=== PATIENT | male | born 1995 | race American Indian/Alaskan Native ===

== ENCOUNTER 2019-07-25 10:07 | Observation (INO) | payer OTHER ==
[2019-07-25] MEDS ORDERED: ZIPRASIDONE MESYLATE 20 MG VIAL IM ONE ×2 (10:15→10:18)
[2019-07-25] MEDS ORDERED: WATER FOR INJ Sterile (PF) 10 ML ONE (10:18)
[2019-07-25] MEDS ORDERED: FOSPHENYTOIN 1,000 MG.PE in SODIUM CHLORIDE 0.9% 100 ML IV ONE (10:23)
--- NOTE | 2019-07-25 10:24 | Emergency Department Report ---
HPI - General Time Seen by Provider: 07/25/19 10:11 - HPI HPI: 24-year-old Lilibeth male presents to the emergency department from home with apparently having 2 witnessed seizures. Patient has a seizure disorder history for which she is on Dilantin but allegedly has been out for the past 3 days. Family told EMS that after he has seizures he has about a 2 hour period where he becomes combative. However the patient is awake, alert, oriented and does continue to be agitated and combative. He has made multiple attempts to try and bite ER staff. The patient does not appear to have been at this emergency department previously. ED Review of Systems ROS: Stated complaint: SZ/COMBATIVE Other details as noted in HPI Comment: Unobtainable due to pts medical conditions Constitutional: denies: fever Neurological: headache, other (seizure) Physical Exam - Physical Exam Physical Exam: GENERAL: The patient is well-developed well-nourished. HENT: Normocephalic. Atraumatic. Patient has moist mucous membranes. EYES: Extraocular motions are intact. Pupils equal reactive to light bilaterally. NECK: Supple. Trachea is midline. CHEST/LUNGS: Clear to auscultation. There is no respiratory distress noted. HEART/CARDIOVASCULAR: Regular. There is mild tachycardia. There is no murmur. ABDOMEN: Abdomen is soft, nontender. Patient has normal bowel sounds. There is no abdominal distention. SKIN: Skin is warm and dry. NEURO: The patient is awake but is agitated, noncompliant and questionable postictal. however the patient is able to answer some identification questions appropriately. Withdraws from painful stimuli. Normal speech. Cranial nerves II through XII grossly intact. MUSCULOSKELETAL: Patient has tenderness to palpation of the left shoulder which is hanging low within the shoulder joint concerning for dislocation. Radial pulse +2 over 4 and capillary refill less than 2 seconds bilaterally. - Moderate Sedation Indications: fracture/dislocation redu Time of Last PO Intake: 00:00 (unknown) Preparation: cardiac technologist applied, pulse oximeter, capnometry used, supplemental O2 applied, suction/airway equipment at bedside, IV secured Ketamine: IV Ketamine Dose: 40 IV Propofol Dose (mgs): 30 Complications: none Patient Tolerated Procedure: well - Orthopedic Joint Reduction Joint #1 Consent Obtained: verbal consent, emergent situation Time Out Performed: Yes Side: left Joint Reduction Location: shoulder Analgesia: moderate sedation Shoulder Technique Used (if applicable): traction/counter-traction, external rotation Post-Reduction Neuro Exam: intact Post-Reduction Vascular Exam: intact Post Reduction X-Ray Obtained: Yes Post Reduction X-Ray Results: reduced Splint Applied: Yes Patient Tolerated Procedure: well ED Medical Decision Making - Lab Data Result diagrams: 07/25/19 10:45 07/25/19 10:45 - Radiology Data Radiology results: report reviewed, image reviewed interpreted by me: Initial left shoulder x-ray shows a anterior inferior dislocation. Postreduction x-ray shows appropriate alignment of the humeral head within the glenohumeral joint CT of the head does not show any acute intracranial process including no is chemia, shift, mass, bleeding or skull fracture. - Medical Decision Making This patient presents after having 2 witnessed seizures at home with a history of a seizure disorder and alleged noncompliance with his phenytoin for the past 3 days. The patient did have another witnessed seizure while in the emergency department later on during his ED course. Apparently the patient has some history of being combative during his post ictal state. However the patient is able to answer some orientation questions appropriately but yet still is combative and belligerent, trying to bite members of the ER staff. The patient required some restraints, both chemical and physical, due to his combativeness and concern that he would further injure himself. At some point during one of his original seizures or in his combative state prior to arrival in the emergency department, the patient appears to have dislocated his left shoulder which he apparently has a history of doing recurrently. Patient was loaded with fosphenytoin. Patient was given some Geodon, Ativan, and then Benadryl so that we could start to evaluate and treat him. His labs are mostly unremarkable except for a urine drug screen positive for marijuana. He does have a low and subtherapeutic phenytoin level. The patient had a CT scan of the head without contrast that does not show any bleed, shift, mass, ischemia, or any other acute process. Patient had a left shoulder x-ray that did confirm an anterior and inferior shoulder dislocation. A moderate sedation was done and the shoulder w as appropriately reduced. The patient does not present with any contact information for family, there is no family at bedside, the patient is not in a state of mind to make appropriate medical decisions. Therefore the procedures were done on an emergent basis as I did not want to leave the patient's shoulder out of socket. However the patient was heard saying to "put my shoulder back in place" multiple times during his ED course. The patient has been in the emergency department for close to 4 hours and he has had multiple seizures today, is not back at his baseline mental status, and therefore will be admitted to the hospital for further evaluation and treatment. There may be a psychiat mario component as well. The patient has been accepted for admission by the hospitalist, Dr. Santana. - Differential Diagnosis seizure disorder, conversion disorder, shoulder dislocation Critical Care Time: No Critical care attestation.: If time is entered above; I have spent that time in minutes in the direct care of this critically ill patient, excluding procedure time. ED Disposition Clinical Impression: Recurrent seizures, Combative behavior Dislocation of left shoulder joint Qualifiers: Encounter type: initial encounter Qualified Code(s): S43.005A - Unspecified dislocation of left shoulder joint, initial encounter Altered mental status Qualifiers: Altered mental status type: unspecified Qualified Code(s): R41.82 - Altered mental status, unspecified Disposition: DC-09 OP ADMIT IP TO THIS HOSP Is pt being admited?: Yes Condition: Fair Time of Disposition: 15:03
[2019-07-25] MEDS ORDERED: LORazepam 2 MG/ML VIAL IV ONE ×3 (10:59→12:56)
[2019-07-25 11:02] LABS: Basophils # (Auto) 0.1 K/mm3 (0.0-0.1); Basophils % (Auto) 0.6 % (0.0-1.8); Eosinophils % (Auto) 0.3 % (0.0-4.3); Hematocrit 46.7 % (35.5-45.6); Hemoglobin 14.9 gm/dl (11.8-15.2); Lymphocytes # (Auto) 0.9 K/mm3 (1.2-5.4); Lymphocytes % (Auto) 6.4 % (13.4-35.0); Mean Corpuscular HGB Conc 32 % (32-34); Mean Corpuscular Volume 85 fl (84-94); Monocytes # (Auto) 0.6 K/mm3 (0.0-0.8); Monocytes % (Auto) 4.6 % (0.0-7.3); Platelet Count 230 K/mm3 (140-440); Red Blood Count 5.48 M/mm3 (3.65-5.03); Red Cell Distribution Width 14.9 % (13.2-15.2)
[2019-07-25 11:16] LABS: BUN/Creatinine Ratio 15; Blood Urea Nitrogen 12 mg/dL (9-20); Calcium 8.1 mg/dL (8.4-10.2); Hemolysis Index 50
--- NOTE | 2019-07-25 11:49 | XRay Report ---
Left shoulder-3 views INDICATION: left shoulder pain. COMPARISON: None. IMPRESSION: Anterior inferior humeral head dislocation with Hill-Sachs fracture. Tiny ossific densit y along the inferior glenoid margin worrisome for a bony Bankart lesion. Signer Name: Dwayne El MD Signed: 07/25/2019 11:44 AM Workstation Name: [id number]
[2019-07-25] MEDS ORDERED: diphenhydrAMINE 50 MG/ML VIAL IV ONE (11:50)
[2019-07-25 12:31] LABS: Amphetamine Screen,Urine PRESUMPTIVE NEGATIVE; Benzodiazepines Screen,Urine PRESUMPTIVE NEGATIVE; Cocaine Screen,Urine PRESUMPTIVE NEGATIVE; Methadone Screen,Urine PRESUMPTIVE NEGATIVE; Opiate Screen,Urine PRESUMPTIVE NEGATIVE
[2019-07-25] MEDS ORDERED: PROPOFOL 200 MG/20 ML VIAL IV ONE (12:56)
[2019-07-25] MEDS ORDERED: SODIUM CHLORIDE 0.9% 1000 ML 1,000 ML IV ONE (12:56)
[2019-07-25 13:06] LABS: Cannabinoid Screen,Urine PRESUMPTIVE POSITIVE
[2019-07-25] MEDS ORDERED: KETAMINE 500 MG/5 ML VIAL MDV IV ONE (13:07)
--- NOTE | 2019-07-25 13:37 | XRay Report ---
Single frontal image of the left shoulder INDICATION: post reduction. COMPARISON: Earlier today IMPRESSION: Single frontal image is inadequate for evaluation of any residual dislocation or subluxa tion. A scapular Y view or axillary view is recommended and also the patient must be positioned in ex ternal rotation, not simply internal rotation as seen on this exam. Signer Name: Dwayne El MD Signed: 07/25/2019 1:32 PM Workstation Name: [id number]
--- NOTE | 2019-07-25 13:42 | Cat Scan Report ---
CT HEAD WITHOUT CONTRAST INDICATION / CLINICAL INFORMATION: seizures, headache. TECHNIQUE: All CT scans at this location are performed using CT dose reduction for ALARA by means of automated e xposure control. COMPARISON: None available. FINDINGS: LIMITATIONS: Patient was scanned in an oblique position. HEMORRHAGE: No evidence of intracranial hemorrhage or extra-axial fluid collection. EXTRA-AXIAL SPACES: Cortical sulci, sylvian fissures and basilar cisterns have an unremarkable appear ance. VENTRICULAR SYSTEM: The ventricular system is of normal size and configuration. CEREBRAL PARENCHYMA: No areas of abnormal brain parenchymal attenuation are identified. There is no i ndication of recent infarction. MIDLINE SHIFT OR HERNIATION: There is no mass effect. CEREBELLUM / BRAINSTEM: Brainstem and cerebellum have an unremarkable appearance. INTRACRANIAL VESSELS:No abnormalities are identified on this noncontrast head CT. ORBITS: visualized portions of the orbits have an unremarkable appearance. SOFT TISSUES of HEAD: No significant abnormality. CALVARIUM: Evaluation of bone windows reveals no abnormalities. PARANASAL SINUSES / MASTOID AIR CELLS: Inflammatory mucosal disease is present within mid, anterior a nd posterior ethmoid air cells bilaterally as well as in the dependent portion of the right sphenoid sinus. Mild inflammatory changes are present in the right frontal sinus. Mastoid air cells and middle ear cavities appear clear. IMPRESSION: 1. No intracranial abnormalities. 2. Inflammatory changes in the paranasal sinuses as described above. Signer Name: Paul Guzman MD Signed: 07/25/2019 1:38 PM Workstation Name: [id number]
--- NOTE | 2019-07-25 14:06 | XRay Report ---
Left shoulder-2 scapular Y views INDICATION: shoulder reduction. COMPARISON: Earlier today IMPRESSION: Interval relocation with Hill-Sachs fracture again noted. Signer Name: Dwayne El MD Signed: 07/25/2019 2:01 PM Workstation Name: [id number]
--- NOTE | 2019-07-25 14:53 | History and Physical Report ---
<MAXX HAWTHORNE - Last Filed: 07/25/19 17:48> History of Present Illness Date of examination: 07/25/19 Date of admission: 07/25/2019 Chief complaint: Seizures History of present illness: Pt is a 24-year-old Lilibeth male with a PMH of seizure disorder who presents to the emergency department via EMS after two witnessed seizures this morning. Family reports that he has been out of his anti seizure medications x 3 days and noncompliance with his medication regimen. Patient is reported to have a history of being combative during his post ictal state. He is currently 4 points restrained, moderately sedated/ post tical after dislocating L shoulder in combative state. He is not able to answer orientation questions appropriately on examination. Past History Past Medical History: other (seizure) Past Surgical History: Other (pt not able to answer questions appropriately ) Social history: smoking Family history: other (pt not able to answer questions appropriately ) Medications and Allergies Allergies Allergy/AdvReac Type Severity Reaction Status Date / Time No Known Allergies Allergy Verified 07/25/19 10:33 Active Meds: Active Medications Sodium Chloride (Nacl 0.9% 1000 Ml) 1,000 mls @ 125 mls/hr IV ONCE ONE Stop: 07/25/19 20:55 Last Admin: 07/25/19 13:12 Dose: 125 mls/hr Documented by: Review of Systems ROS unobtainable: due to mental status Exam - Constitutional Vitals: Temp Pulse Resp BP Pulse Ox 98.3 F 79 17 140/72 100 07/25/19 10:20 07/25/19 13:45 07/25/19 13:45 07/25/19 13:45 07/25/19 13:45 General appearance: Present: severe distress - Respiratory Respiratory effort: normal Respiratory: bilateral: CTA - Extremities Extremities: No edema (L arm sling) Peripheral Pulses: within normal limits Results - Labs CBC & Chem 7: 07/25/19 10:45 07/25/19 10:45 Labs: Laboratory Last Values WBC 13.6 K/mm3 (4.5-11.0) H 07/25/19 10:45 RBC 5.48 M/mm3 (3.65-5.03) H 07/25/19 10:45 Hgb 14.9 gm/dl (11.8-15.2) 07/25/19 10:45 Hct 46.7 % (35.5-45.6) H 07/25/19 10:45 MCV 85 fl (84-94) 07/25/19 10:45 MCH 27 pg (28-32) L 07/25/19 10:45 MCHC 32 % (32-34) 07/25/19 10:45 RDW 14.9 % (13.2-15.2) 07/25/19 10:45 Plt Count 230 K/mm3 (140-440) 07/25/19 10:45 Lymph % (Auto) 6.4 % (13.4-35.0) L 07/25/19 10:45 [place] % (Auto) 4.6 % (0.0-7.3) 07/25/19 10:45 Eos % (Auto) 0.3 % (0.0-4.3) 07/25/19 10:45 Baso % (Auto) 0.6 % (0.0-1.8) 07/25/19 10:45 Lymph # 0.9 K/mm3 (1.2-5.4) L 07/25/19 10:45 [place] # 0.6 K/mm3 (0.0-0.8) 07/25/19 10:45 Eos # 0.0 K/mm3 (0.0-0.4) 07/25/19 10:45 Baso # 0.1 K/mm3 (0.0-0.1) 07/25/19 10:45 Seg Neutrophils % 88.1 % (40.0-70.0) H 07/25/19 10:45 Seg Neutrophils # 12.0 K/mm3 (1.8-7.7) H 07/25/19 10:45 Sodium 143 mmol/L (137-145) 07/25/19 10:45 Potassium 3.5 mmol/L (3.6-5.0) L 07/25/19 10:45 Chloride 109.2 mmol/L (98-107) H 07/25/19 10:45 Carbon Dioxide 16 mmol/L (22-30) L 07/25/19 10:45 Anion Gap 21 mmol/L 07/25/19 10:45 BUN 12 mg/dL (9-20) 07/25/19 10:45 Creatinine 0.8 mg/dL (0.8-1.5) 07/25/19 10:45 Estimated GFR > 60 ml/min 07/25/19 10:45 BUN/Creatinine Ratio 15 % 07/25/19 10:45 Glucose 112 mg/dL (75-100) H 07/25/19 10:45 Calcium 8.1 mg/dL (8.4-10.2) L 07/25/19 10:45 Total Creatine Kinase 690 units/L (55-170) H 07/25/19 10:45 TSH 0.755 mlU/mL (0.270-4.200) 07/25/19 13:04 Urine Opiates Screen Presumptive negative 07/25/19 12:00 Urine Methadone Screen Presumptive negative 07/25/19 12:00 Ur Barbiturates Screen Presumptive negative 07/25/19 12:00 Phenytoin 1.2 ug/mL (10.0-20.0) L 07/25/19 10:45 Valproic Acid < 2.8 ug/mL (50-100) L 07/25/19 10:45 Ur Phencyclidine Scrn Presumptive negative 07/25/19 12:00 Ur Amphetamines Screen Presumptive negative 07/25/19 12:00 U Benzodiazepines Scrn Presumptive negative 07/25/19 12:00 Urine Cocaine Screen Presumptive negative 07/25/19 12:00 U Marijuana (THC) Screen Presumptive positive 07/25/19 12:00 Drugs of Abuse Note Disclamer 07/25/19 12:00 Plasma/Serum Alcohol < 0.01 % (0-0.07) 07/25/19 10:45 - Imaging and Cardiology EKG: pending CT Scan - head: report reviewed (No intracranial abnormalities, Inflammatory changes in the right frontal sinus.) Imaging and Cardiology: Left shoulder-2 scapular views POST reduction- Interval relocation with Hill-Sachs fracture again noted. Assessment and Plan Assessment and plan: Seizure Disorder -antiepileptic medication blood levels Phenytoin 1.2, Valproic acid <2.8 -Loading dose fosphenytoin given in ER -Etoh -, THC + -Keppra 1000mq q 12 L Humerus fracture - Hill-Sachs fracture noted on xray -physical therapy, and careful observation may be an effective option -Ortho Conuslt Altered mental status -Therapeutic antiepileptic blood level should correct -CT Head ordered -restraints or sitter may be needed, evaluate -Neuro Consult SIRS -nonspecific to seizures but not related to infection -IVF -monitor labs, UA added Hypokalemia -Potassium on admission 3.5 -Continue to monitor, replete prn -Continuous telemetry monitoring DVT Prophylaxis -SCD Advance Directives: No VTE prophylaxis?: Mechanical <BHARGAV SOUZA S - Last Filed: 07/26/19 14:14> History of Present Illness Date of admission: 07/25/19 15:04 Medications and Allergies Active Meds: Active Medications Acetaminophen (Tylenol) 650 mg PO Q4H PRN PRN Reason: Pain MILD(1-3)/Fever >100.5/SCHILLING Famotidine (Pepcid) 20 mg IV BID DIMA Sodium Chloride (Nacl 0.9% 1000 Ml) 1,000 mls @ 125 mls/hr IV ONCE ONE Stop: 07/25/19 20:55 Last Admin: 07/25/19 13:12 Dose: 125 mls/hr Documented by: Levetiracetam 1,000 mg/ (Dextrose) 110 mls @ 400 mls/hr IV Q12HR DIMA Sodium Chloride (Nacl 0.9% 1000 Ml) 1,000 mls @ 125 mls/hr IV DIRECT DIMA Lorazepam (Ativan) 1 mg IV Q4H PRN PRN Reason: Agitation Morphine Sulfate (Morphine) 2 mg IV Q4H PRN PRN Reason: Pain, Moderate (4-6) Ondansetron HCl (Zofran) 4 mg IV Q8H PRN PRN Reason: Nausea And Vomiting Sodium Chloride (Sodium Chloride Flush Syringe 10 Ml) 10 ml IV BID DIMA Sodium Chloride (Sodium Chloride Flush Syringe 10 Ml) 10 ml IV PRN PRN PRN Reason: LINE FLUSH Exam - Constitutional Vitals: Temp Pulse Resp BP Pulse Ox 98.3 F 62 24 124/57 100 07/25/19 10:20 07/25/19 15:00 07/25/19 16:15 07/25/19 16:15 07/25/19 14:15 General appearance: Present: no acute distress, well-nourished - EENT Eyes: Present: PERRL ENT: hearing intact, clear oral mucosa - Neck Neck: Present: supple, normal ROM - Respiratory Respiratory effort: normal Respiratory: bilateral: CTA - Cardiovascular Heart rate: 80 Rhythm: regular Heart Sounds: Present: S1 & S2. Absent: rub, click - Extremities Extremities: no ischemia, pulses intact, pulses symmetrical, No edema Peripheral Pulses: within normal limits - Abdominal General gastrointestinal: Present: soft, non-tender, non-distended, normal bowel sounds Male genitourinary: Present: normal - Integumentary Integumentary: Present: clear, warm, dry - Musculoskeletal Musculoskeletal: generalized weakness - Psychiatric Psychiatric: agitated, other (decreased responsiveness and agitation, postictal state, combative) - Neurologic Neurologic: CNII-XII intact, moves all extremities - Allied Health Allied health notes reviewed: nursing, case management Results - Labs CBC & Chem 7: 07/26/19 07:04 07/26/19 07:04 Labs: Laboratory Last Values WBC 13.6 K/mm3 (4.5-11.0) H 07/25/19 10:45 RBC 5.48 M/mm3 (3.65-5.03) H 07/25/19 10:45 Hgb 14.9 gm/dl (11.8-15.2) 07/25/19 10:45 Hct 46.7 % (35.5-45.6) H 07/25/19 10:45 MCV 85 fl (84-94) 07/25/19 10:45 MCH 27 pg (28-32) L 07/25/19 10:45 MCHC 32 % (32-34) 07/25/19 10:45 RDW 14.9 % (13.2-15.2) 07/25/19 10:45 Plt Count 230 K/mm3 (140-440) 07/25/19 10:45 Lymph % (Auto) 6.4 % (13.4-35.0) L 07/25/19 10:45 Cobb % (Auto) 4.6 % (0.0-7.3) 07/25/19 10:45 Eos % (Auto) 0.3 % (0.0-4.3) 07/25/19 10:45 Baso % (Auto) 0.6 % (0.0-1.8) 07/25/19 10:45 Lymph # 0.9 K/mm3 (1.2-5.4) L 07/25/19 10:45 [place] # 0.6 K/mm3 (0.0-0.8) 07/25/19 10:45 Eos # 0.0 K/mm3 (0.0-0.4) 07/25/19 10:45 Baso # 0.1 K/mm3 (0.0-0.1) 07/25/19 10:45 Seg Neutrophils % 88.1 % (40.0-70.0) H 07/25/19 10:45 Seg Neutrophils # 12.0 K/mm3 (1.8-7.7) H 07/25/19 10:45 Sodium 143 mmol/L (137-145) 07/25/19 10:45 Potassium 3.5 mmol/L (3.6-5.0) L 07/25/19 10:45 Chloride 109.2 mmol/L (98-107) H 07/25/19 10:45 Carbon Dioxide 16 mmol/L (22-30) L 07/25/19 10:45 Anion Gap 21 mmol/L 07/25/19 10:45 BUN 12 mg/dL (9-20) 07/25/19 10:45 Creatinine 0.8 mg/dL (0.8-1.5) 07/25/19 10:45 Estimated GFR > 60 ml/min 07/25/19 10:45 BUN/Creatinine Ratio 15 % 07/25/19 10:45 Glucose 112 mg/dL (75-100) H 07/25/19 10:45 Calcium 8.1 mg/dL (8.4-10.2) L 07/25/19 10:45 Total Creatine Kinase 690 units/L (55-170) H 07/25/19 10:45 TSH 0.755 mlU/mL (0.270-4.200) 07/25/19 13:04 Urine Opiates Screen Presumptive negative 07/25/19 12:00 Urine Methadone Screen Presumptive negative 07/25/19 12:00 Ur Barbiturates Screen Presumptive negative 07/25/19 12:00 Phenytoin 1.2 ug/mL (10.0-20.0) L 07/25/19 10:45 Valproic Acid < 2.8 ug/mL (50-100) L 07/25/19 10:45 Ur Phencyclidine Scrn Presumptive negative 07/25/19 12:00 Ur Amphetamines Screen Presumptive negative 07/25/19 12:00 U Benzodiazepines Scrn Presumptive negative 07/25/19 12:00 Urine Cocaine Screen Presumptive negative 07/25/19 12:00 U Marijuana (THC) Screen Presumptive positive 07/25/19 12:00 Drugs of Abuse Note Disclamer 07/25/19 12:00 Plasma/Serum Alcohol < 0.01 % (0-0.07) 07/25/19 10:45 Short CBC 07/25/19 Range/Units 10:45 WBC 13.6 H (4.5-11.0) K/mm3 Hgb 14.9 (11.8-15.2) gm/dl Hct 46.7 H (35.5-45.6) % Plt Count 230 (140-440) K/mm3 BMP 07/25/19 10:45 Sodium 143 Potassium 3.5 L Chloride 109.2 H Carbon Dioxide 16 L BUN 12 Creatinine 0.8 Glucose 112 H Calcium 8.1 L Cardiac Enzymes 07/25/19 Range/Units 10:45 Total Creatine Kinase 690 H (55-170) units/L - Imaging and Cardiology CT Scan - head: report reviewed Assessment and Plan Assessment and plan: Acute Encephalopathy--Post ictal state
[2019-07-25] MEDS ORDERED: ONDANSETRON 4 MG/2 ML INJ IV PRN (15:01)
[2019-07-25] MEDS ORDERED: ACETAMINOPHEN 325 MG TAB PO PRN (15:01)
[2019-07-25] MEDS ORDERED: MORPHINE 2 MG/1 ML INJ IV PRN (15:01)
[2019-07-25] MEDS ORDERED: PHENYTOIN 1,000 MG in SODIUM CHLORIDE 0.9% 250ML 250 ML IV ONE (15:09)
[2019-07-25] MEDS ORDERED: SODIUM CHLORIDE 0.9% 1000 ML 1,000 ML IV SCH (17:15)
[2019-07-25] MEDS ORDERED: LORazepam 2 MG/ML VIAL IV PRN (18:44)
[2019-07-25] MEDS: FAMOTIDINE 20 MG/2 ML INJ IV SCH (21:53)
[2019-07-25] MEDS: levETIRAcetam 1,000 MG in DEXTROSE 5% IN WATER 100 ML IV SCH (21:55)
[2019-07-25] MEDS ORDERED: PHENYTOIN 100 MG/2 ML VIAL IV SCH (22:00)
[2019-07-26] MEDS ORDERED: HALOPERIDOL LACTATE 5 MG/1 ML INJ IM ONE (05:32)
[2019-07-26] MEDS ORDERED: diphenhydrAMINE 50 MG/ML VIAL IV ONE (05:33)
[2019-07-26 07:44] LABS: Basophils % (Auto) 0.3 % (0.0-1.8); Hematocrit 47.2 % (35.5-45.6); Hemoglobin 15.5 gm/dl (11.8-15.2); Lymphocytes % (Auto) 7.6 % (13.4-35.0); Mean Corpuscular HGB Conc 33 % (32-34); Mean Corpuscular Volume 84 fl (84-94); Monocytes # (Auto) 1.1 K/mm3 (0.0-0.8); Monocytes % (Auto) 8.4 % (0.0-7.3); Platelet Count 238 K/mm3 (140-440); Red Blood Count 5.64 M/mm3 (3.65-5.03); Red Cell Distribution Width 14.6 % (13.2-15.2)
[2019-07-26 08:07] LABS: BUN/Creatinine Ratio 15; Blood Urea Nitrogen 16 mg/dL (9-20); Calcium 9.7 mg/dL (8.4-10.2); Hemolysis Index 55
[2019-07-26] MEDS: FAMOTIDINE 20 MG/2 ML INJ IV SCH ×2 (09:45→21:28)
[2019-07-26] MEDS: levETIRAcetam 1,000 MG in DEXTROSE 5% IN WATER 100 ML IV SCH (09:45)
--- NOTE | 2019-07-26 10:43 | Progress Note ---
Assessment and Plan Assessment and plan: Seizure Disorder -antiepileptic medication blood levels Phenytoin 1.2, Valproic acid <2.8 -Loading dose fosphenytoin given in ER -Etoh -, THC + -Keppra 1000mg q 12 L Humerus fracture - Hill-Sachs fracture with dislocation noted on xray -physical therapy, and careful observation may be an effective option -Ortho Consulted Acute metabolic encephalopathy -Therapeutic antiepileptic blood level should correc sitter at bedside -Neuro Consultted SIRS -nonspecific to seizures but not related to infection -IVF -monitor labs, UA added Hypokalemia -Potassium on admission 3.5 -Continue to monitor, replete prn -Continuous telemetry monitoring DVT Prophylaxis -SCD History Interval history: Breakthrough seizures Agitation Hospitalist Physical - Physical exam Narrative exam: Gen: Not in acute distress, lying in bed HEENT: Normocephalic, atraumatic Neck: supple, no JVD Heart: S1 and S2 reg, no murmurs, rubs or gallop Lungs: Clear to auscultation bilaterally, Abd: soft, non tender, non distended, normal BS, Ext: No edema, no clubbing, no cyanosis, Neuro: Awake, alert, oriented X 3, Mild agitation, on restraints, No focal neurological signs - Constitutional Vitals: Temp Pulse Resp BP Pulse Ox 98.6 F 61 30 H 99/42 99 07/25/19 20:33 07/25/19 20:33 07/26/19 06:02 07/25/19 20:33 07/25/19 21:59 General appearance: Present: no acute distress, well-nourished Results - Labs CBC & Chem 7: 07/26/19 07:04 07/26/19 07:04 Labs: Laboratory Last Values WBC 12.8 K/mm3 (4.5-11.0) H 07/26/19 07:04 RBC 5.64 M/mm3 (3.65-5.03) H 07/26/19 07:04 Hgb 15.5 gm/dl (11.8-15.2) H 07/26/19 07:04 Hct 47.2 % (35.5-45.6) H 07/26/19 07:04 MCV 84 fl (84-94) 07/26/19 07:04 MCH 28 pg (28-32) 07/26/19 07:04 MCHC 33 % (32-34) 07/26/19 07:04 RDW 14.6 % (13.2-15.2) 07/26/19 07:04 Plt Count 238 K/mm3 (140-440) 07/26/19 07:04 Lymph % (Auto) 7.6 % (13.4-35.0) L 07/26/19 07:04 [place] % (Auto) 8.4 % (0.0-7.3) H 07/26/19 07:04 Eos % (Auto) 0.0 % (0.0-4.3) 07/26/19 07:04 Baso % (Auto) 0.3 % (0.0-1.8) 07/26/19 07:04 Lymph # 1.0 K/mm3 (1.2-5.4) L 07/26/19 07:04 [place] # 1.1 K/mm3 (0.0-0.8) H 07/26/19 07:04 Eos # 0.0 K/mm3 (0.0-0.4) 07/26/19 07:04 Baso # 0.0 K/mm3 (0.0-0.1) 07/26/19 07:04 Seg Neutrophils % 83.7 % (40.0-70.0) H 07/26/19 07:04 Seg Neutrophils # 10.7 K/mm3 (1.8-7.7) H 07/26/19 07:04 Sodium 137 mmol/L (137-145) 07/26/19 07:04 Potassium 4.3 mmol/L (3.6-5.0) D 07/26/19 07:04 Chloride 99.6 mmol/L (98-107) 07/26/19 07:04 Carbon Dioxide 18 mmol/L (22-30) L 07/26/19 07:04 Anion Gap 24 mmol/L 07/26/19 07:04 BUN 16 mg/dL (9-20) 07/26/19 07:04 Creatinine 1.1 mg/dL (0.8-1.5) 07/26/19 07:04 Estimated GFR > 60 ml/min 07/26/19 07:04 BUN/Creatinine Ratio 15 % 07/26/19 07:04 Glucose 107 mg/dL (75-100) H 07/26/19 07:04 Calcium 9.7 mg/dL (8.4-10.2) D 07/26/19 07:04 Total Creatine Kinase 690 units/L (55-170) H 07/25/19 10:45 TSH 0.755 mlU/mL (0.270-4.200) 07/25/19 13:04 Urine Opiates Screen Presumptive negative 07/25/19 12:00 Urine Methadone Screen Presumptive negative 07/25/19 12:00 Ur Barbiturates Screen Presumptive negative 07/25/19 12:00 Phenytoin 1.2 ug/mL (10.0-20.0) L 07/25/19 10:45 Valproic Acid < 2.8 ug/mL (50-100) L 07/25/19 10:45 Ur Phencyclidine Scrn Presumptive negative 07/25/19 12:00 Ur Amphetamines Screen Presumptive negative 07/25/19 12:00 U Benzodiazepines Scrn Presumptive negative 07/25/19 12:00 Urine Cocaine Screen Presumptive negative 07/25/19 12:00 U Marijuana (THC) Screen Presumptive positive 07/25/19 12:00 Drugs of Abuse Note Disclamer 07/25/19 12:00 Plasma/Serum Alcohol < 0.01 % (0-0.07) 07/25/19 10:45 Active Medications - Current Medications Current Medications: Generic Name Dose Route Start Last Admin Trade Name Freq PRN Reason Stop Dose Admin Acetaminophen 650 mg 07/25/19 15:01 Tylenol PO Q4H PRN Pain MILD(1-3)/Fever >100.5/SCHILLING Famotidine 20 mg 07/25/19 22:00 07/26/19 09:45 Pepcid IV 20 mg BID DIMA Administration Levetiracetam 1,000 mg/ 110 mls @ 400 mls/hr 07/25/19 22:00 07/26/19 09:45 Dextrose IV 400 mls/hr Q12HR DIMA Administration Sodium Chloride 1,000 mls @ 125 mls/hr 07/25/19 17:15 07/25/19 21:58 Nacl 0.9% 1000 Ml IV 125 mls/hr DIRECT DIMA Administration Lorazepam 1 mg 07/25/19 18:44 07/26/19 07:36 Ativan IV 1 mg Q4H PRN Administration Agitation Morphine Sulfate 2 mg 07/25/19 15:01 07/26/19 09:46 Morphine IV 2 mg Q4H PRN Administration Pain, Moderate (4-6) Ondansetron HCl 4 mg 07/25/19 15:01 Zofran IV Q8H PRN Nausea And Vomiting Sodium Chloride 10 ml 07/25/19 22:00 07/26/19 09:47 Sodium Chloride Flush Syringe 10 Ml IV 10 ml BID DIMA Administration Sodium Chloride 10 ml 07/25/19 15:01 Sodium Chloride Flush Syringe 10 Ml IV PRN PRN LINE FLUSH
[2019-07-26] MEDS ORDERED: LORazepam 2 MG/ML VIAL IV PRN ×2 (10:53)
[2019-07-26] MEDS ORDERED: D5W/0.9% NACL 1,000 ML IV SCH (13:00)
[2019-07-26] MEDS ORDERED: FOSPHENYTOIN 500 MG PE/10 ML INJ IV ONE (18:19)
--- NOTE | 2019-07-26 18:19 | Consultation ---
History of Present Illness Consult date: 07/26/19 Chief complaint: seizure, medication on compliance History of present illness: This is a 24 YO M with known history of seizures, presented to the ED with 3 seizures, out of meds x 3 days. On my arrival he is sleepy but arousable and will answer questions. Family at bedside says pt does not like Keppra, has been on it in the past and it makes him irritable. Past History Past Medical History: seizures, other (seizure) Past Surgical History: Other (pt not able to answer questions appropriately ) Social history: smoking Family history: other (pt not able to answer questions appropriately ) Medications and Allergies Allergies Allergy/AdvReac Type Severity Reaction Status Date / Time No Known Allergies Allergy Verified 07/25/19 10:33 Active Meds: Active Medications Acetaminophen (Tylenol) 650 mg PO Q4H PRN PRN Reason: Pain MILD(1-3)/Fever >100.5/SCHILLING Famotidine (Pepcid) 20 mg IV BID [facility] Last Admin: 07/26/19 09:45 Dose: 20 mg Documented by: Levetiracetam 1,000 mg/ (Dextrose) 110 mls @ 400 mls/hr IV Q12HR [facility] Last Admin: 07/26/19 09:45 Dose: 400 mls/hr Documented by: Dextrose/Sodium Chloride (D5ns) 1,000 mls @ 75 mls/hr IV DIRECT [facility] Last Admin: 07/26/19 16:12 Dose: 75 mls/hr Documented by: Lorazepam (Ativan) 4 mg IV Q15MIN PRN PRN Reason: CIWA-Ar >25 Lorazepam (Ativan) 2 mg IV Q1HR PRN PRN Reason: CIWA-Ar 8-15 Morphine Sulfate (Morphine) 2 mg IV Q4H PRN PRN Reason: Pain, Moderate (4-6) Last Admin: 07/26/19 09:46 Dose: 2 mg Documented by: Ondansetron HCl (Zofran) 4 mg IV Q8H PRN PRN Reason: Nausea And Vomiting Sodium Chloride (Sodium Chloride Flush Syringe 10 Ml) 10 ml IV BID [facility] Last Admin: 07/26/19 09:47 Dose: 10 ml Documented by: Sodium Chloride (Sodium Chloride Flush Syringe 10 Ml) 10 ml IV PRN PRN PRN Reason: LINE FLUSH Review of Systems Neurological: seizures Physical Examination - Vital Signs Vital Signs: Vital Signs Pulse Resp 95 H 19 07/25/19 10:19 07/25/19 10:19 - Constitutional General appearance: comfortable - EENT EENT: Present: PERRL, mucous membranes moist - Respiratory Respiratory: Present: chest non-tender, lungs clear - Cardiovascular Cardiovascular: Present: regular rate Extremities: Present: no peripheral edema bilatateraly, other (left shoulder in sling) - Gastrointestinal Gastrointestinal: Present: normoactive bowel sounds - Integumentary Integumentary: Present: normal - Neurologic Cranial nerve examination: PERRL, EOMI, V1/V2/V3 grossly intact, face symmetric, tongue midline Speech examination: intact Motor examination - right side: 5/5: biceps, triceps, wrist flexion, wrist ext ension, strategic alliances manager, hip flexors, knee extensors, dorsiflexion, toe extension (EHL), plantarflexion Motor examination - left side: 5/5: biceps, triceps, wrist flexion, wrist extension, strategic alliances manager, hip flexors, knee extensors, dorsiflexion, toe extension (EHL), plantarflexion Detailed sensory examination: intact - Psychiatric Psychiatric: Present: mood/affect appropriate Results - Laboratory Findings CBC and BMP: 07/26/19 07:04 07/26/19 07:04 Abnormal Lab Findings: Abnormal Labs 07/25/19 07/25/19 07/25/19 10:45 10:45 10:45 WBC 13.6 H RBC 5.48 H Hgb Hct 46.7 H MCH 27 L Lymph % (Auto) 6.4 L Camp % (Auto) Lymph # 0.9 L Camp # Seg Neutrophils % 88.1 H Seg Neutrophils # 12.0 H Potassium 3.5 L Chloride 109.2 H Carbon Dioxide 16 L Glucose 112 H Calcium 8.1 L Total Creatine Kinase 690 H Phenytoin 1.2 L Valproic Acid < 2.8 L 07/26/19 07/26/19 07:04 07:04 WBC 12.8 H RBC 5.64 H Hgb 15.5 H Hct 47.2 H MCH Lymph % (Auto) 7.6 L Camp % (Auto) 8.4 H Lymph # 1.0 L Camp # 1.1 H Seg Neutrophils % 83.7 H Seg Neutrophils # 10.7 H Potassium Chloride Carbon Dioxide 18 L Glucose 107 H Calcium Total Creatine Kinase Phenytoin Valproic Acid Assessment and Plan This is a 24 YO M with breakthru seizure secondary to nonc ompliance. REcommend: Will stop Keppra, he has not tolerated it in the past. Restart Dilantin. Continue care for all medical issues as you are doing Follow up with PCP/Neurologist outpatient
[2019-07-26] MEDS ORDERED: FOSPHENYTOIN 1,000 MG.PE in SODIUM CHLORIDE 0.9% 100 ML IV ONE (18:45)
[2019-07-27 06:39] VITALS: BP 127/57
[2019-07-27] MEDS: PHENYTOIN 100 MG CAPSULE.ER PO SCH ×2 (09:45→15:08)
[2019-07-27] MEDS ORDERED: FAMOTIDINE 20 MG TAB PO SCH (10:00)
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
--- NOTE | 2019-07-27 16:11 | Discharge Summary ---
Providers - Providers Date of Admission: 07/25/19 15:04 Date of discharge: 07/27/19 Attending physician: LUPE PORTER 07/25/19 16:27 Consult to Physician [CONS] Routine Comment: Consulting Provider: SOPHIE ISIDRO Physician Instructions: Reason For Exam: sz 07/25/19 16:29 Consult to Physician [CONS] Routine Comment: Consulting Provider: RADHA LEE Physician Instructions: Reason For Exam: fx Primary care physician: CLINICAL LABORATORY DIRECTOR Hospitalization Reason for admission: seizure disorder Condition: Fair Pertinent studies: CT scan of the head that was unremarkable X-ray of the left shoulder shows evidence of dislocation Admission EKG that shows evidence of atrial fibrillation EKG shows normal sinus rate Procedures: None Hospital course: Pt is a 24-year-old Lilibeth male with a PMH of seizure disorder who presents to the emergency department via EMS after two witnessed seizures this morning. Family reports that he has been out of his anti seizure medications x 3 days and noncompliance with his medication regimen. Patient is reported to have a history of being combative during his post ictal state. He is currently 4 points restrained, moderately sedated/ post tical after dislocating L shoulder in combative state. He is not able to answer orientation questions appropriately on examination. Patient commenced in iv Keppra. Family members indicated that patient does not respond well to Keppra. Makes him aggressive. Neuro consult was obtained. Advised to discontinue Keppra commence patient on Dilantin. Patient has had no more seizures since admission. Mental status and reverted to normal. He's never been discharged today on Dilantin. Advised to follow-up with primary care physician in 3 days and follow-up with a neurologist in 7 days. Condition on discharge was satisfactory. While on admission orthopedic surgical consult was obtained because of the dislocated his shoulder. Orthopedic consult noted that patient may not benefit from surgical intervention at this point. Dislocation had reduced spontaneously. Compliance with his medication was advised. Disposition: DC-01 TO HOME OR SELFCARE Time spent for discharge: 36 min - Discharge Diagnoses (1) Altered mental status Status: Acute Qualifiers: Altered mental status type: unspecified Qualified Code(s): R41.82 - Altered mental status, unspecified (2) Combative behavior Status: Acute (3) Dislocation of left shoulder joint Status: Acute Qualifiers: Encounter type: initial encounter Qualified Code(s): S43.005A - Unspecified dislocation of left shoulder joint, initial encounter (4) Recurrent seizures Status: Acute Core Measure Documentation - Palliative Care Palliative Care/ Comfort Measures: Not Applicable - Core Measures Any of the following diagnoses?: none Exam - Physical Exam Narrative exam: Constitutional: Well-nourished well-developed. In no distress Head: Normocephalic atraumatic Eyes: Pupils are equal round and reactive to light Nose: No enlarged turbinates, no septal deviation. Mouth: Moist mucous membranes. Neck: Supple no thyromegaly. No bruit. No JVD Heart: Regular rate and rhythm, S1-S2 normal. No rubs murmurs or gallop Lungs: Clear to auscultation bilaterally. no rales or rhonchi Abdomen: Soft, nontender. Bowel sound are present. Extremities: No edema, no cyanosis, no clubbing. Neuro: Alert oriented Oriented x3. No focal sensory or motor deficit. Skin: No rashes or hyperpigmented spots Musculoskeletal system: No joint pain or swelling Hematological: No petechia or subcutanous hemorrhages. Immunological: No multiple septic spots on the skin Lymphatic: No generalized lymphadenopathy Psychiatry: Euthymic. Calm. - Constitutional Vitals: Temp Pulse Resp BP Pulse Ox 98.1 F 85 14 127/57 97 07/27/19 05:45 07/27/19 05:45 07/27/19 05:45 07/27/19 05:45 07/27/19 05:45 Plan Activity: fall precautions Weight Bearing Status: Weight Bear as Tolerated Diet: regular Follow up with: PRIMARY CARE, [Primary Care Provider] - 3-5 Days Prescriptions: Phenytoin [Dilantin] 100 mg PO Q8HR #90 capsule.er
== END 2019-07-27 17:30 | disposition home or self-care (01) ==
LOC: ED 10:07 → 3A 15:04
PROVIDERS: ADMIT Internal Medicine; ATTEND Family Medicine
DX: G40.909 Epilepsy, unspecified, not intractable, without status epilepticus (principal); R65.10 Systemic inflammatory response syndrome (SIRS) of non-infectious origin without acute organ dysfunction; R41.82 Altered mental status, unspecified; E87.6 Hypokalemia; G93.41 Metabolic encephalopathy; S42.202A Unspecified fracture of upper end of left humerus, initial encounter for closed fracture; R46.89 Other symptoms and signs involving appearance and behavior; X58.XXXA Exposure to other specified factors, initial encounter; Y93.89 Activity, other specified; Y99.9 Unspecified external cause status
CPT/HCPCS: 36415; 70450; 73020; 73030; 80048; 80164; 80185; 80307; 82550; 84443; 85025; 93005; 93010; 96361; 96365; 96366; 96367; 96372; 96375; 96376; 99284; G0378; J1165; J1200; J1630; J1953; J2060; J2270; J2704; J3486; J7030; J7042; J7050; Q2009; 80320; G0480

== ENCOUNTER 2019-08-12 21:35 | Emergency (ER) | payer SELFPAY ==
[2019-08-12] MEDS ORDERED: LORazepam 2 MG/ML VIAL ONE (21:43)
[2019-08-12] MEDS ORDERED: LORazepam 2 MG/ML VIAL IM ONE ×2 (21:56→22:19)
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
[2019-08-12] MEDS ORDERED: HALOPERIDOL LACTATE 5 MG/1 ML INJ IM ONE (22:19)
[2019-08-12] MEDS ORDERED: diphenhydrAMINE 50 MG/ML VIAL IV ONE (22:21)
[2019-08-12 23:04] LABS: Amphetamine Screen,Urine PRESUMPTIVE NEGATIVE; Cocaine Screen,Urine PRESUMPTIVE NEGATIVE; Methadone Screen,Urine PRESUMPTIVE NEGATIVE; Opiate Screen,Urine PRESUMPTIVE NEGATIVE
[2019-08-12 23:16] LABS: Benzodiazepines Screen,Urine PRESUMPTIVE POSITIVE; Cannabinoid Screen,Urine PRESUMPTIVE POSITIVE
[2019-08-12] MEDS: FOSPHENYTOIN 1,000 MG.PE in SODIUM CHLORIDE 0.9% 100 ML IV ONE (23:34)
[2019-08-13] MEDS: FOSPHENYTOIN 1,000 MG.PE in SODIUM CHLORIDE 0.9% 100 ML IV ONE (01:26)
[2019-08-13 01:40] LABS: Hematocrit 42.8 % (35.5-45.6); Mean Corpuscular HGB Conc 33 % (32-34); Mean Corpuscular Volume 85 fl (84-94); Platelet Count 232 K/mm3 (140-440); Red Blood Count 5.07 M/mm3 (3.65-5.03); Red Cell Distribution Width 14.7 % (13.2-15.2)
[2019-08-13 02:01] LABS: BUN/Creatinine Ratio 8; Blood Urea Nitrogen 8 mg/dL (9-20); Calcium 9.9 mg/dL (8.4-10.2); Hemolysis Index 6
[2019-08-13 03:41] VITALS: BP 115/59
== END 2019-08-13 09:57 | disposition home or self-care (01) ==
LOC: ED 21:35
DX: R45.6 Violent behavior (principal); G40.909 Epilepsy, unspecified, not intractable, without status epilepticus; R41.82 Altered mental status, unspecified; Z79.899 Other long term (current) drug therapy
CPT/HCPCS: 36415; 80048; 80185; 80307; 85027; 96365; 96372; 96375; 99284; J1200; J1630; J2060; Q2009; 80320; 82962; G0480

== ENCOUNTER 2019-09-07 10:13 | Emergency (ER) | payer SELFPAY ==
[2019-09-07] MEDS ORDERED: levETIRAcetam 1000 MG/NS 0.75% 1,000 MG/100 ML BAG IV ONE (11:21)
[2019-09-07] MEDS ORDERED: LORazepam 2 MG/ML VIAL IV ONE ×2 (11:22→13:21)
--- NOTE | 2019-09-07 12:26 | XRay Report ---
LEFT SHOULDER 3 VIEWS INDICATION / CLINICAL INFORMATION: pain, deformation COMPARISON: None available. FINDINGS: BONES / JOINT(S): Subcoracoid dislocation of the humeral head with Hill-Sachs deformity. No acute yobani earing injury. No significant arthritis. SOFT TISSUES: No significant abnormality. ADDITIONAL FINDINGS: None. Signer Name: Marin Taylor MD Signed: 09/07/2019 12:21 PM Workstation Name: [employer]
[2019-09-07] MEDS ORDERED: BUPIVACAINE/PF (0.5%) 5 MG/1 ML 30 ML VIAL INFILTRATI ONE (13:21)
--- NOTE | 2019-09-07 13:25 | Emergency Department Report ---
ED General Adult HPI - General Chief complaint: Seizure Stated complaint: SEIZURE Time Seen by Provider: 09/07/19 11:17 Source: patient, EMS Mode of arrival: Stretcher Limitations: Other - History of Present Illness Initial comments: Patient presents to the emergency department with a chief complaint of seizure activity. Patient takes Dilantin daily for his seizures. Patient also complains of left shoulder pain. Patient has a history of shoulder dislocations. -: Sudden Location: upper extremity Radiation: non-radiation Severity scale (0 -10): 6 Quality: aching Consistency: constant Improves with: rest Associated Symptoms: denies other symptoms Treatments Prior to Arrival: none - Related Data Previous Rx's Medication Instructions Recorded Last Taken Type Phenytoin [Dilantin] 100 mg PO Q8HR #90 capsule.er 08/13/19 Unknown Rx Allergies Allergy/AdvReac Type Severity Reaction Status Date / Time No Known Allergies Allergy Verified 09/07/19 11:03 ED Review of Systems ROS: Stated complaint: SEIZURE Other details as noted in HPI Constitutional: denies: chills, fever Eyes: denies: eye pain, eye discharge, vision change ENT: denies: ear pain, throat pain Respiratory: denies: cough, shortness of breath, wheezing Cardiovascular: denies: chest pain, palpitations Endocrine: no symptoms reported Gastrointestinal: denies: abdominal pain, nausea, diarrhea Genitourinary: denies: urgency, dysuria Musculoskeletal: denies: back pain, joint swelling, arthralgia Skin: denies: rash, lesions Neurological: denies: headache, weakness, paresthesias Psychiatric: denies: anxiety, depression Hematological/Lymphatic: denies: easy bleeding, easy bruising ED Past Medical Hx - Past Medical History Previous Medical History?: Yes Hx Congestive Heart Failure: No Hx Diabetes: No Hx Seizures: Yes Hx Asthma: No Hx COPD: No Hx HIV: No - Social History Smoking Status: Unknown if ever smoked - Medications Home Medications: Home Medications Medication Instructions Recorded Confirmed Last Taken Type Phenytoin [Dilantin] 100 mg PO Q8HR #90 capsule.er 08/13/19 Unknown Rx ED Physical Exam - General Limitations: Other General appearance: alert, in no apparent distress, other (patient is post ictal and very combative) - Head Head exam: Present: atraumatic, normocephalic - Eye Eye exam: Present: normal appearance, PERRL, EOMI - ENT ENT exam: Present: mucous membranes moist - Neck Neck exam: Present: normal inspection - Respiratory Respiratory exam: Present: normal lung sounds bilaterally. Absent: respiratory distress - Cardiovascular Cardiovascular Exam: Present: regular rate, normal rhythm. Absent: systolic murmur, diastolic murmur, rubs, gallop - GI/Abdominal GI/Abdominal exam: Present: soft, normal bowel sounds. Absent: distended, tenderness - Rectal Rectal exam: Present: deferred - Extremities Exam Extremities exam: Present: other (of his dislocation of the left shoulder) - Back Exam Back exam: Present: normal inspection - Neurological Exam Neurological exam: Present: alert, oriented X3 - Psychiatric Psychiatric exam: Present: normal affect, normal mood - Skin Skin exam: Present: warm, dry, intact, normal color. Absent: rash ED Course Vital Signs 09/07/19 09/07/19 09/07/19 10:20 11:18 15:27 Temperature 98.7 F Pulse Rate 88 Pulse Rate [ 55 L Post-Procedure] Pulse Rate [Pre 61 -Procedure] Respiratory 16 18 Rate Respiratory 19 Rate [Post- Procedure] Respiratory 19 Rate [Pre- Procedure] Blood Pressure 136/64 Blood Pressure 144/67 [Post-Procedure ] Blood Pressure 143/59 [Pre-Procedure] O2 Sat by Pulse 100 Oximetry O2 Sat by Pulse 100 Oximetry [Post -Procedure] O2 Sat by Pulse 100 Oximetry [Pre- Procedure] - Orthopedic Joint Reduction Joint #1 Consent Obtained: written consent Time Out Performed: Yes Side: left Joint Reduction Location: shoulder Analgesia: moderate sedation Local Anesthetic Used: Lidocaine 1% Shoulder Technique Used (if applicable): Sandra Post-Reduction Neuro Exam: intact Post-Reduction Vascular Exam: intact Post Reduction X-Ray Obtained: Yes Post Reduction X-Ray Results: reduced Splint Applied: Yes Patient Tolerated Procedure: well Additional Comments: Initially the reduction was attempted with local injection of Marcaine without success ED Medical Decision Making - Lab Data Lab Results 09/07/19 Range/Units 13:02 Phenytoin 3.3 L (10.0-20.0) ug/mL - Radiology Data Radiology results: report reviewed - Medical Decision Making Patient given IV Keppra and IV Ativan Critical care attestation.: If time is entered above; I have spent that time in minutes in the direct care of this critically ill patient, excluding procedure time. ED Disposition Clinical Impression: Seizure, Shoulder dislocation, recurrent Disposition: DC-01 TO HOME OR SELFCARE Is pt being admited?: No Does the pt Need Aspirin: No Condition: Stable Instructions: Shoulder Dislocation (ED), Recurrent Seizures Adult (ED), Moderate Sedation (ED) Additional Instructions: return if worse Please take your seizure medications as prescribed Referrals: CHRISTIAN GEORGE MD [Primary Care Provider] - 3-5 Days Time of Disposition: 16:00
[2019-09-07] MEDS ORDERED: SODIUM CHLORIDE 0.9% 1000 ML 1,000 ML IV ONE (14:17)
[2019-09-07] MEDS ORDERED: ONDANSETRON 4 MG/2 ML INJ IV ONE (14:17)
[2019-09-07] MEDS ORDERED: PROPOFOL 200 MG/20 ML VIAL IV ONE (14:17)
--- NOTE | 2019-09-07 15:54 | XRay Report ---
LEFT SHOULDER 09/07/2019 3:31 PM HISTORY: Post reduction. COMPARISON: Same day at 11:13 AM TECHNIQUE: 1 view of the left shoulder was obtained. FINDINGS Bones: No fracture or dislocation. The shoulder dislocation has been reduced. Joint spaces: Maintained. Soft tissues: No significant abnormality. Additional findings: None. IMPRESSION: 1. Reduction of shoulder dislocation. Signer Name: Alonso Weathers MD Signed: 09/07/2019 3:50 PM Workstation Name: [id number]
[2019-09-07 17:12] VITALS: BP 121/68
== END 2019-09-07 17:17 | disposition home or self-care (01) ==
LOC: ED 10:13
DX: S43.005A Unspecified dislocation of left shoulder joint, initial encounter (principal); R56.9 Unspecified convulsions; Z79.899 Other long term (current) drug therapy; X58.XXXA Exposure to other specified factors, initial encounter; Y93.89 Activity, other specified; Y92.89 Other specified places as the place of occurrence of the external cause; Y99.8 Other external cause status
CPT/HCPCS: 23650; 36415; 73020; 73030; 80185; 96365; 96375; 96376; 99285; J1953; J2060; J2405; J2704; J7030

== ENCOUNTER 2019-10-05 09:43 | Emergency (ER) | payer SELFPAY ==
[2019-10-05] MEDS ORDERED: KETOROLAC 30 MG/1 ML INJ IV ONE (10:29)
[2019-10-05 10:46] VITALS: BP 138/80
--- NOTE | 2019-10-05 10:46 | Emergency Department Report ---
{null, ED Seizure HPI - General Chief Complaint: Seizure Stated Complaint: SEIZURE Time Seen by Provider: 10/05/19 10:02 Source: EMS Mode of arrival: Stretcher Limitations: No Limitations - History of Present Illness Initial Comments: 24-year-old male with a past medical history of seizure disorder currently on Dilantin. Patient had 2 seizures witnessed by bystanders prior to arrival. Patient was postictal in presence of EMS. Patient states he is compliant with his Dilantin 100 mg 3 times daily dosing with last dose this morning. Patient complains of right sided moderate headache which is typical of his post seizure headache. Patient is tearful during examination and appears to be upset. No reports of tongue laceration, urinary incontinence, focal weakness, or focal numbness. - Related Data Previous Rx's Medication Instructions Recorded Last Taken Type Ibuprofen [Motrin] 600 mg PO Q8H PRN #20 tablet 10/05/19 Unknown Rx Phenytoin [Dilantin] 100 mg PO Q8HR #90 capsule.er 10/05/19 Unknown Rx Allergies Allergy/AdvReac Type Severity Reaction Status Date / Time No Known Allergies Allergy Verified 09/07/19 11:03 ED Review of Systems ROS: Stated complaint: SEIZURE Other details as noted in HPI Comment: All other systems reviewed and negative ED Past Medical Hx - Past Medical History Previous Medical History?: Yes Hx Congestive Heart Failure: No Hx Diabetes: No Hx Seizures: Yes Hx Asthma: No Hx COPD: No Hx HIV: No - Surgical History Past Surgical History?: No - Social History Smoking Status: Light Tobacco Smoker Substance Use Type: None - Medications Home Medications: Home Medications Medication Instructions Recorded Confirmed Last Taken Type Ibuprofen [Motrin] 600 mg PO Q8H PRN #20 tablet 10/05/19 Unknown Rx Phenytoin [Dilantin] 100 mg PO Q8HR #90 capsule.er 10/05/19 Unknown Rx ED Physical Exam - General Limitations: No Limitations - Other Other exam information: General: No acute distress Head: Atraumatic Eyes: normal appearance ENT: Moist mucous membranes Neck: Normal appearance, no midline tenderness Chest: Clear to auscultation bilaterally CV: Regular rate and rhythm Abdomen: Soft, normal bowel sounds, nontender, nondistended, no rebound or guarding Back: Normal inspection Extremity: Normal inspection, full range of motion Neuro: Alert O x 3, no facial asymmetry, speech clear, no gross motor sensory deficit Psych: Tearful Skin: No rash ED Course Vital Signs 10/05/19 10/05/19 10/05/19 10:15 10:30 11:30 Pulse Rate 84 Respiratory 16 16 16 Rate Blood Pressure 138/80 [Left] O2 Sat by Pulse 98 98 Oximetry 10/05/19 10/05/19 12:00 13:33 Pulse Rate Respiratory 16 16 Rate Blood Pressure [Left] O2 Sat by Pulse Oximetry - Reevaluation(s) Reevaluation #1: 10/05/19 10:45 As informed by RN that patient walked out of the department. He did not have IV placed. 10/05/19 10:57 pt is back, he apparently went outside to smoke a cigarette ED Medical Decision Making - Lab Data Result diagrams: 10/05/19 10:15 10/05/19 10:15 Lab Results 10/05/19 10/05/19 10/05/19 Range/Units 10:15 10:15 10:15 WBC 4.8 (4.5-11.0) K/mm3 RBC 5.38 H (3.65-5.03) M/mm3 Hgb 15.1 (11.8-15.2) gm/dl Hct 45.4 (35.5-45.6) % MCV 84 (84-94) fl MCH 28 (28-32) pg MCHC 33 (32-34) % RDW 14.8 (13.2-15.2) % Plt Count 250 (140-440) K/mm3 Lymph % (Auto) Resistor [place]inder [place] % (Auto) Resistor Winder Eos % (Auto) Resistor Winder Baso % (Auto) Resistor Winder Lymph # Resistor Winder [place] # Resistor Winder Eos # Resistor Winder Baso # Resistor Winder Seg Neutrophils % Resistor Winder Seg Neutrophils # Resistor Winder Sodium 139 (137-145) mmol/L Potassium 5.1 H (3.6-5.0) mmol/L Chloride 106.1 (98-107) mmol/L Carbon Dioxide 19 L (22-30) mmol/L Anion Gap 19 mmol/L BUN 11 (9-20) mg/dL Creatinine 0.8 (0.8-1.5) mg/dL Estimated GFR > 60 ml/min BUN/Creatinine Ratio 14 % Glucose 85 (75-100) mg/dL Calcium 9.9 (8.4-10.2) mg/dL Magnesium 2.10 (1.7-2.3) mg/dL Phenytoin 2.6 L (10.0-20.0) ug/mL - Medical Decision Making Patient presents to the hospital complaining of typical post seizure headache. He is alert and at baseline mental status. Provided Toradol and morphine for pain. Dilantin subtherapeutic and patient received fosphenytoin IV 1 g load. Patient be discharged with med refill and pain medication - Differential Diagnosis Medication noncompliance, electrolyte abnormality, breakthrough seizure Critical Care Time: No Critical care attestation.: If time is entered above; I have spent that time in minutes in the direct care of this critically ill patient, excluding procedure time. ED Disposition Clinical Impression: Recurrent seizures, Noncompliance with medication regimen Disposition: TO HOME OR SELFCARE Is pt being admited?: No Does the pt Need Aspirin: No Condition: Stable Instructions: Epilepsy (ED) Additional Instructions: Take the medication as prescribed. Follow-up with your doctor or doctor/clinic provided. Return if symptoms worsen as indicated by your discharge instructions. Prescriptions: Phenytoin [Dilantin] 100 mg PO Q8HR #90 capsule.er Ibuprofen [Motrin] 600 mg PO Q8H PRN #20 tablet PRN Reason: Pain Referrals: [facility] MD BANG [Primary Care Provider] - 3-5 Days ANA CANTU MD [Staff Physician] - 3-5 Days (Neurology) Time of Disposition: 13:41 }
[2019-10-05 11:03] LABS: Hematocrit 45.4 % (35.5-45.6); Hemoglobin 15.1 gm/dl (11.8-15.2); Mean Corpuscular HGB Conc 33 % (32-34); Mean Corpuscular Volume 84 fl (84-94); Platelet Count 250 K/mm3 (140-440); Red Blood Count 5.38 M/mm3 (3.65-5.03); Red Cell Distribution Width 14.8 % (13.2-15.2)
[2019-10-05 11:08] LABS: BUN/Creatinine Ratio 14; Blood Urea Nitrogen 11 mg/dL (9-20); Calcium 9.9 mg/dL (8.4-10.2); Hemolysis Index 66
[2019-10-05] MEDS ORDERED: MORPHINE 4 MG/1 ML INJ IV ONE (12:43)
[2019-10-05] MEDS ORDERED: ONDANSETRON 4 MG/2 ML INJ IV ONE (12:43)
[2019-10-05] MEDS ORDERED: FOSPHENYTOIN 1,000 MG.PE in SODIUM CHLORIDE 0.9% 100 ML IV ONE (12:48)
== END 2019-10-05 14:33 | disposition home or self-care (01) ==
LOC: ED 09:43
DX: G40.909 Epilepsy, unspecified, not intractable, without status epilepticus (principal); F17.200 Nicotine dependence, unspecified, uncomplicated; Z91.14 Patient's other noncompliance with medication regimen; Z79.1 Long term (current) use of non-steroidal anti-inflammatories (NSAID); Z79.899 Other long term (current) drug therapy
CPT/HCPCS: 36415; 80048; 80185; 83735; 85025; 96365; 96375; 99284; J1885; J2270; J2405; Q2009

== ENCOUNTER 2020-02-06 13:34 | Emergency (ER) | payer SELFPAY ==
--- NOTE | 2020-02-06 13:55 | Emergency Department Report ---
ED Seizure HPI - General Chief Complaint: Seizure Stated Complaint: SEIZURE Time Seen by Provider: 02/06/20 13:53 Source: EMS Mode of arrival: Stretcher Limitations: Other - History of Present Illness Initial Comments: This is a 24-year-old man with frequent visits at this facility for seizure and noncompliance. He is capable of talking to this provider on his arrival although he is perhaps a bit postictal from a grand mal seizure prior to arrival. He states that he is taking his Dilantin. Based on previous history, this is unlikely. He is not providing any further information. He is not answering in the affirmative to any questions about injury. He really has no complaint. He is inclined to lay on the gurney with the covers over his head. He was once admitted as below however he usually comes to the emergency department with seizures and noncompliance and is discharged: Hospitalization Reason for admission: seizure disorder Condition: Fair Pertinent studies: CT scan of the head that was unremarkable X-ray of the left shoulder shows evidence of dislocation Admission EKG that shows evidence of atrial fibrillation EKG shows normal sinus rate Procedures: None Hospital course: Pt is a 24-year-old Lilibeth male with a PMH of seizure disorder who presents to the emergency department via EMS after two witnessed seizures this morning. Family reports that he has been out of his anti seizure medications x 3 days and noncompliance with his medication regimen. Patient is reported to have a history of being combative during his post ictal state. He is currently 4 points restrained, moderately sedated/ post tical after dislocating L shoulder in combative state. He is not able to answer orientation questions appropriately on examination. Patient commenced in iv Keppra. Family members indicated that patient does not respond well to Keppra. Makes him aggressive. Neuro consult was obtained. Advised to discontinue Keppra commence patient on Dilantin. Patient has had no more seizures since admission. Mental status and reverted to normal. He's never been discharged today on Dilantin. Advised to follow-up with primary care physician in 3 days and follow-up with a neurologist in 7 days. Condition on discharge was satisfactory. While on admission orthopedic surgical consult was obtained because of the dislocated his shoulder. Orthopedic consult noted that patient may not benefit from surgical intervention at this point. Dislocation had reduced spontaneously. Compliance with his medication was advised. Disposition: DC-01 TO HOME OR SELFCARE Time spent for discharge: 36 min - Discharge Diagnoses (1) Altered mental status Status: Acute Qualifiers: Altered mental status type: unspecified Qualified Code(s): R41.82 - Altered mental status, unspecified (2) Combative behavior Status: Acute (3) Dislocation of left shoulder joint Status: Acute Qualifiers: Encounter type: initial encounter Qualified Code(s): S43.005A - Unspecified dislocation of left shoulder joint, initial encounter (4) Recurrent seizures - Related Data Previous Rx's Medication Instructions Recorded Last Taken Type Ibuprofen [Motrin] 600 mg PO Q8H PRN #20 tablet 10/05/19 Unknown Rx Phenytoin [Dilantin] 100 mg PO Q8HR #90 capsule.er 10/05/19 Unknown Rx Phenytoin [Dilantin] 300 mg PO DAILY #90 capsule 02/06/20 Unknown Rx Allergies Allergy/AdvReac Type Severity Reaction Status Date / Time No Known Allergies Allergy Verified 02/06/20 13:40 ED Review of Systems ROS: Stated complaint: SEIZURE Other details as noted in HPI ED Past Medical Hx - Past Medical History Previous Medical History?: Yes Hx Congestive Heart Failure: No Hx Diabetes: No Hx Seizures: Yes Hx Asthma: No Hx COPD: No Hx HIV: No - Social History Smoking Status: Light Tobacco Smoker Substance Use Type: None - Medications Home Medications: Home Medications Medication Instructions Recorded Confirmed Last Taken Type Ibuprofen [Motrin] 600 mg PO Q8H PRN #20 tablet 10/05/19 Unknown Rx Phenytoin [Dilantin] 100 mg PO Q8HR #90 capsule.er 10/05/19 Unknown Rx Phenytoin [Dilantin] 300 mg PO DAILY #90 capsule 02/06/20 Unknown Rx ED Physical Exam - General Limitations: Other General appearance: alert, in no apparent distress - Head Head exam: Present: atraumatic, normocephalic - Eye Eye exam: Present: normal appearance. Absent: scleral icterus (Poor cooperation) - ENT ENT exam: Present: mucous membranes moist - Neck Neck exam: Present: normal inspection. Absent: meningismus - Respiratory Respiratory exam: Present: normal lung sounds bilaterally. Absent: respiratory distress - Cardiovascular Cardiovascular Exam: Present: regular rate, normal rhythm. Absent: systolic murmur, diastolic murmur, rubs, gallop - GI/Abdominal GI/Abdominal exam: Present: soft, normal bowel sounds. Absent: distended, tenderness - Rectal Rectal exam: Present: deferred - Extremities Exam Extremities exam: Present: normal inspection, other (No deformity. No evidence of dislocation). Absent: calf tenderness - Back Exam Back exam: Present: normal inspection - Neurological Exam Neurological exam: Present: alert, oriented X3, CN II-XII intact (As testable). Absent: motor sensory deficit - Psychiatric Psychiatric exam: Present: normal mood, flat affect - Skin Skin exam: Present: warm, dry, intact, normal color. Absent: rash ED Course Vital Signs 02/06/20 02/06/20 02/06/20 13:40 15:51 16:13 Temperature 97.7 F 97.7 F Pulse Rate 48 L 48 L Respiratory 14 18 19 Rate Blood Pressure 112/64 Blood Pressure 112/64 [Left] O2 Sat by Pulse 99 99 Oximetry - Reevaluation(s) Reevaluation #1: Patient remained poorly cooperative. He finally stated he was ready to leave. He admitted to poor compliance. He will be given p.o. Dilantin prior to discharge. Compliance is encouraged. Driving is prohibited. Follow-up is per the [facility]. Hopefully the patient will be inclined to follow- up this time. 02/06/20 16:58 ED Medical Decision Making - Lab Data Result diagrams: 02/06/20 14:01 02/06/20 14:01 Laboratory Results - last 24 hr 02/06/20 02/06/20 02/06/20 14:01 14:01 14:01 WBC 4.0 L RBC 5.51 H Hgb 15.7 H Hct 46.4 H MCV 84 MCH 29 MCHC 34 RDW 15.1 Plt Count 209 Lymph % (Auto) 31.1 [place] % (Auto) 10.6 H Eos % (Auto) 11.8 H Baso % (Auto) 0.9 Lymph # 1.2 [place] # 0.4 Eos # 0.5 H Baso # 0.0 Seg Neutrophils % 45.6 Seg Neutrophils # 1.8 Sodium 142 Potassium 4.7 Chloride 105.8 Carbon Dioxide 21 L Anion Gap 20 BUN 11 Creatinine 1.0 Estimated GFR > 60 BUN/Creatinine Ratio 11 Glucose 71 L Calcium 10.4 H Total Bilirubin 0.20 Direct Bilirubin < 0.2 Indirect Bilirubin 0.0 AST 24 ALT 25 Alkaline Phosphatase 136 H Total Protein 7.2 Albumin 4.8 Albumin/Globulin Ratio 2.0 Urine Color Urine Turbidity Urine pH Ur Specific Pony Urine Protein Urine Glucose (UA) Urine Ketones Urine Blood Urine Nitrite Urine Bilirubin Urine Urobilinogen Ur Leukocyte Esterase Urine WBC (Auto) Urine RBC (Auto) U Epithel Cells (Auto) Urine Opiates Screen Urine Methadone Screen Ur Barbiturates Screen Phenytoin 1.7 L Ur Phencyclidine Scrn Ur Amphetamines Screen U Benzodiazepines Scrn Urine Cocaine Screen U Marijuana (THC) Screen Drugs of Abuse Note 02/06/20 02/06/20 15:30 15:33 WBC RBC Hgb Hct MCV MCH MCHC RDW Plt Count Lymph % (Auto) [place] % (Auto) Eos % (Auto) Baso % (Auto) Lymph # [place] # Eos # Baso # Seg Neutrophils % Seg Neutrophils # Sodium Potassium Chloride Carbon Dioxide Anion Gap BUN Creatinine Estimated GFR BUN/Creatinine Ratio Glucose Calcium Total Bilirubin Direct Bilirubin Indirect Bilirubin AST ALT Alkaline Phosphatase Total Protein Albumin Albumin/Globulin Ratio Urine Color Straw Urine Turbidity Clear Urine pH 6.0 Ur Specific [place]ony 1.014 Urine Protein <15 mg/dl Urine Glucose (UA) Neg Urine Ketones Neg Urine Blood Neg Urine Nitrite Neg Urine Bilirubin Neg Urine Urobilinogen < 2.0 Ur Leukocyte Esterase Neg Urine WBC (Auto) 1.0 Urine RBC (Auto) 1.0 U Epithel Cells (Auto) < 1.0 Urine Opiates Screen Presumptive negative Urine Methadone Screen Presumptive negative Ur Barbiturates Screen Presumptive negative Phenytoin Ur Phencyclidine Scrn Presumptive negative Ur Amphetamines Screen Presumptive negative U Benzodiazepines Scrn Presumptive positive Urine Cocaine Screen Presumptive negative U Marijuana (THC) Screen Presumptive positive Drugs of Abuse Note Disclamer Critical care attestation.: If time is entered above; I have spent that time in minutes in the direct care of this critically ill patient, excluding procedure time. ED Disposition Clinical Impression: Seizure, Seizure disorder, Medical non-compliance Disposition: DC-01 TO HOME OR SELFCARE Is pt being admited?: No Does the pt Need Aspirin: No Condition: Stable Instructions: Recurrent Seizures Adult (ED) Additional Instructions: Do not drive. Follow-[facility] with the [facility]. Obviously it is essential you take your seizure medication. Rx is written. Prescriptions: Phenytoin [Dilantin] 300 mg PO DAILY #90 capsule Referrals: [facility] [Provider Group] - 3-5 Days Time of Disposition: 17:00
[2020-02-06 14:19] LABS: Hematocrit 46.4 % (35.5-45.6); Hemoglobin 15.7 gm/dl (11.8-15.2); Mean Corpuscular HGB Conc 34 % (32-34); Mean Corpuscular Volume 84 fl (84-94); Platelet Count 209 K/mm3 (140-440); Red Blood Count 5.51 M/mm3 (3.65-5.03); Red Cell Distribution Width 15.1 % (13.2-15.2)
[2020-02-06 14:23] LABS: Basophils % (Auto) 0.9 % (0.0-1.8); Eosinophils # (Auto) 0.5 K/mm3 (0.0-0.4); Eosinophils % (Auto) 11.8 % (0.0-4.3); Lymphocytes # (Auto) 1.2 K/mm3 (1.2-5.4); Lymphocytes % (Auto) 31.1 % (13.4-35.0); Monocytes # (Auto) 0.4 K/mm3 (0.0-0.8); Monocytes % (Auto) 10.6 % (0.0-7.3)
[2020-02-06 14:38] LABS: Alanine Aminotransferase 25 units/L (7-56); Albumin 4.8 g/dL (3.9-5); BUN/Creatinine Ratio 11; Blood Urea Nitrogen 11 mg/dL (9-20); Calcium 10.4 mg/dL (8.4-10.2); Hemolysis Index 16
[2020-02-06 14:45] LABS: Bilirubin,Direct < 0.2 mg/dL (0-0.2)
[2020-02-06 15:47] LABS: Bilirubin,Urine NEG (Negative); Blood,Urine NEG (Negative); Color,Urine Straw (Yellow); Protein,Urine <15 mg/dL mg/dL (Negative); Urobilinogen,Urine < 2.0 mg/dL (<2.0)
[2020-02-06 15:53] LABS: Amphetamine Screen,Urine PRESUMPTIVE NEGATIVE; Cocaine Screen,Urine PRESUMPTIVE NEGATIVE; Methadone Screen,Urine PRESUMPTIVE NEGATIVE; Opiate Screen,Urine PRESUMPTIVE NEGATIVE
[2020-02-06 16:09] LABS: Benzodiazepines Screen,Urine PRESUMPTIVE POSITIVE; Cannabinoid Screen,Urine PRESUMPTIVE POSITIVE
[2020-02-06] MEDS ORDERED: PHENYTOIN 100 MG CAPSULE.ER PO ONE (17:03)
[2020-02-06 18:42] VITALS: BP 118/54
== END 2020-02-06 17:16 | disposition home or self-care (01) ==
LOC: ED 13:34
DX: G40.909 Epilepsy, unspecified, not intractable, without status epilepticus (principal); Z91.19 Patient's noncompliance with other medical treatment and regimen; F17.200 Nicotine dependence, unspecified, uncomplicated; Z79.1 Long term (current) use of non-steroidal anti-inflammatories (NSAID); Z79.899 Other long term (current) drug therapy
CPT/HCPCS: 36415; 80048; 80076; 80185; 80307; 81001; 85025

== ENCOUNTER 2020-04-13 11:27 | Emergency (ER) | payer SELFPAY ==
[2020-04-13] MEDS ORDERED: LORazepam 2 MG/ML VIAL ONE (11:35)
[2020-04-13] MEDS ORDERED: LORazepam 2 MG/ML VIAL IM ONE (11:39)
[2020-04-13] MEDS ORDERED: ACETAMINOPHEN 325 MG TAB ONE (11:43)
[2020-04-13] MEDS ORDERED: ZIPRASIDONE MESYLATE 20 MG VIAL IM ONE ×2 (11:50→12:56)
--- NOTE | 2020-04-13 11:51 | Emergency Department Report ---
ED Seizure HPI - General Stated Complaint: SEIZURES Time Seen by Provider: 04/13/20 11:37 - History of Present Illness Initial Comments: 25-year-old male presents to ED following seizure with dislocated left shoulder. Patient has history of seizures, reports he is compliant with his Dilantin. Patient also has history of chronic dislocations of the shoulder as well. Patient seems to be postictal, as he is currently uncooperative. Patient has multiple previous ER visits for seizure and postictal aggression in which it appears he has been noncompliant with his Dilantin. Patient currently reports headache. He will require medication for his agitation as he is currently not cooperating with exam and work-up. MD Complaint: seizure -: This morning Description of Episode: post-event confusion Witnessed:: Yes Seizure History: known seizure disorder, compliant with medication Place: home - Related Data Previous Rx's Medication Instructions Recorded Last Taken Type Ibuprofen [Motrin] 600 mg PO Q8H PRN #20 tablet 10/05/19 Unknown Rx Phenytoin [Dilantin] 300 mg PO DAILY #90 capsule 02/06/20 Unknown Rx Naproxen [Naprosyn] 500 mg PO BID #20 tablet 04/13/20 Unknown Rx Phenytoin [Dilantin] 100 mg PO Q8HR #300 capsule.er 04/13/20 Unknown Rx traMADoL [Ultram] 50 mg PO Q6HR PRN #7 tablet 04/13/20 Unknown Rx Allergies Allergy/AdvReac Type Severity Reaction Status Date / Time No Known Allergies Allergy Verified 02/06/20 13:40 ED Review of Systems ROS: Stated complaint: SEIZURES Other details as noted in HPI Comment: All other systems reviewed and negative Musculoskeletal: other (reports left shoulder pain) ED Past Medical Hx - Past Medical History Hx Congestive Heart Failure: No Hx Diabetes: No Hx Seizures: Yes Hx Asthma: No Hx COPD: No Hx HIV: No - Social History Smoking Status: Current Every Day Smoker Substance Use Type: None - Medications Home Medications: Home Medications Medication Instructions Recorded Confirmed Last Taken Type Ibuprofen [Motrin] 600 mg PO Q8H PRN #20 tablet 10/05/19 Unknown Rx Phenytoin [Dilantin] 300 mg PO DAILY #90 capsule 02/06/20 Unknown Rx Naproxen [Naprosyn] 500 mg PO BID #20 tablet 04/13/20 Unknown Rx Phenytoin [Dilantin] 100 mg PO Q8HR #300 capsule.er 04/13/20 Unknown Rx traMADoL [Ultram] 50 mg PO Q6HR PRN #7 tablet 04/13/20 Unknown Rx ED Physical Exam - General General appearance: alert, in no apparent distress - Head Head exam: Present: atraumatic, normocephalic - Eye Eye exam: Present: normal appearance, EOMI - ENT ENT exam: Present: mucous membranes moist - Neck Neck exam: Present: normal inspection - Respiratory Respiratory exam: Present: normal lung sounds bilaterally. Absent: respiratory distress - Cardiovascular Cardiovascular Exam: Present: regular rate, normal rhythm - GI/Abdominal GI/Abdominal exam: Absent: distended - Extremities Exam Extremities exam: Present: other (deformity noted left shoulder) - Neurological Exam Neurological exam: Present: alert, oriented X3. Absent: motor sensory deficit - Psychiatric Psychiatric exam: Present: agitated - Skin Skin exam: Present: warm, dry, intact, normal color. Absent: rash ED Course Vital Signs 04/13/20 13:33 Temperature 97.6 F Pulse Rate 52 L Respiratory 20 Rate Blood Pressure 133/94 [Left] O2 Sat by Pulse 100 Oximetry - Reevaluation(s) Reevaluation #1: 04/13/20 11:40 Left shoulder had deformity consistent w/ shoulder dislocation upon arrival. While in room, pt has self-reduced the shoulder. Appears to have normal alignment now. Will obtain xray. ED Medical Decision Making - Lab Data Result diagrams: 04/13/20 12:43 - Radiology Data Radiology results: report reviewed, image reviewed - Medical Decision Making 25-year-old male presents to the ED following seizure at home. Patient initially postictal upon arrival, uncooperative, requiring Geodon and Ativan. He initially arrived with an obvious deformity of the left shoulder consistent with a shoulder dislocation. Patient actually was able to reduce the dislo cation himself. Shoulder x-ray initially stated that there was a posterior dislocation despite pt having normal-appearing shoulder and good ROM; however, CT of the shoulder shows that there is normal alignment, no dislocation. CT head is negative for any intracranial abnormalities. Dilantin level found to be low, so IV fosphenytoin given. Patient is back to baseline. He is A&O x 3. Will discharge home with prescriptions. Neurology follow-up advised. - Differential Diagnosis Seizure, shoulder dislocation, intracranial injury Critical care attestation.: If time is entered above; I have spent that time in minutes in the direct care of this critically ill patient, excluding procedure time. ED Disposition Clinical Impression: Dislocation of left shoulder joint, Recurrent seizures Disposition: TO HOME OR SELFCARE Is pt being admited?: No Condition: Stable Instructions: Shoulder Dislocation (ED), Recurrent Seizures Adult (ED) Prescriptions: Phenytoin [Dilantin] 100 mg PO Q8HR #300 capsule.er Naproxen [Naprosyn] 500 mg PO BID #20 tablet traMADoL [Ultram] 50 mg PO Q6HR PRN #7 tablet PRN Reason: Pain [facility] [Primary Care Provider[facility] - 3-5 Days YANIRA ANDRE MD [Referring] - 3-5 Days RADHA LEE MD [Staff Physician] - 3-5 Days
--- NOTE | 2020-04-13 13:22 | XRay Report ---
LEFT SHOULDER 3 VIEW(S) INDICATION / CLINICAL INFORMATION: dislocation COMPARISON: None available. FINDINGS: BONES / JOINT(S): Posterior shoulder dislocation. Hill-Sachs and reverse Hill Sachs lesions are noted of the humerus. osseous Bankart lesion of the inferior glenoid. SOFT TISSUES: Soft tissue swelling surrounding the shoulder. ADDITIONAL FINDINGS: None. Signer Name: Naresh Romo MD Signed: 04/13/2020 1:18 PM Workstation Name: [id number]
[2020-04-13] MEDS ORDERED: FOSPHENYTOIN 1,000 MG.PE in SODIUM CHLORIDE 0.9% 100 ML IV ONE (14:18)
[2020-04-13 14:27] VITALS: BP 133/94
[2020-04-13 14:51] LABS: BUN/Creatinine Ratio 10; Blood Urea Nitrogen 11 mg/dL (9-20); Calcium 10.3 mg/dL (8.4-10.2); Hemolysis Index 17
--- NOTE | 2020-04-13 15:13 | Cat Scan Report ---
CT head/brain wo con INDICATION: Seizure, altered mental status. TECHNIQUE: Routine CT head without contrast. All CT scans at this location are performed using CT dos e reduction for ALARA by means of automated exposure control. COMPARISON: None. FINDINGS: BRAIN / INTRACRANIAL CONTENTS: No acute hemorrhage, mass effect, midline shift, or hydrocephalus. No appreciable acute large territorial or lacunar infarct. No chronic infarct or focal atrophy. Normal b rain volume and ventricular/sulcal size for age. ORBITS: No significant abnormality of visualized orbits. SINUSES / MASTOIDS: No significant abnormality of visualized sinuses and mastoid air cells. ADDITIONAL FINDINGS: None. IMPRESSION: 1. No acute intracranial abnormality. Signer Name: Del Colindres MD Signed: 04/13/2020 3:09 PM Workstation Name: [id number]
--- NOTE | 2020-04-13 15:25 | Cat Scan Report ---
CT left shoulder without contrast INDICATION : evaluate shoulder for dislocation. TECHNIQUE: Axial imaging performed through the left shoulder without the use of contrast. All CT sc ans at this location are performed using CT dose reduction for ALARA by means of automated exposure c ontrol. COMPARISON: Left shoulder radiographs from today FINDINGS: Patient demonstrates findings of a chronic Hill-Sachs deformity and also chronic anterior i nferior glenohumeral fracture and periosteal stripping which has ossified. There is currently no frac ture or dislocation. No significant DJD. No significant incidental soft tissue findings to include th e visualized left lung. IMPRESSION: Chronic-appearing findings as outlined above with no fracture identified. Signer Name: Dwayne El MD Signed: 04/13/2020 3:21 PM Workstation Name: [id number]
== END 2020-04-13 16:15 | disposition home or self-care (01) ==
LOC: ED 11:27
DX: S43.005A Unspecified dislocation of left shoulder joint, initial encounter (principal); G40.909 Epilepsy, unspecified, not intractable, without status epilepticus; F17.200 Nicotine dependence, unspecified, uncomplicated; Z79.899 Other long term (current) drug therapy; X58.XXXA Exposure to other specified factors, initial encounter; Y93.89 Activity, other specified; Y92.89 Other specified places as the place of occurrence of the external cause; Y99.8 Other external cause status
CPT/HCPCS: 36415; 70450; 73030; 73200; 80048; 80185; 96372; 99285; J2060; J3486; Q2009

== ENCOUNTER 2020-04-16 00:25 | Emergency (ER) | payer SELFPAY ==
--- NOTE | 2020-04-16 02:23 | XRay Report ---
RIGHT SHOULDER 2 VIEWS INDICATION / CLINICAL INFORMATION: right shoulder pain COMPARISON: None available. FINDINGS: BONES / JOINT(S): No acute fracture. Chronic Hill-Sachs deformity. Mild inferior subluxation of the h umeral head likely due to joint effusion. SOFT TISSUES: No significant abnormality. ADDITIONAL FINDINGS: None. Signer Name: Marin Taylor MD Signed: 04/16/2020 2:19 AM Workstation Name: [id number]
--- NOTE | 2020-04-16 02:42 | Emergency Department Report ---
Upper Extremity - HPI Chief Complaint: Shoulder Injury Stated Complaint: SHOULDER PAIN Time Seen by Provider: 04/16/20 02:31 Upper Extremity: Right Shoulder Occurred When: 2 Days Mechanism: Unsure Severity: moderate Symptoms: Yes Pain with Movement, Yes Swelling, No Deformity, No Limited Range of Movement, No Numbness, No Weakness, No Bruising/Ecchymosis, No Laceration or Abrasion Other History: CC: "Is it dislocated? HPI: This is a 25-year-old male with a history of seizure disorder and recurrent bilateral shoulder dislocations he presents with right shoulder pain since seizure 2 days ago. He thinks he may have fallen on his right shoulder during the seizure which occurred 2 days ago. He has moderate severe pain in the shoulder. No other injuries or areas of pain. ED Review of Systems ROS: Stated complaint: SHOULDER PAIN Other details as noted in HPI Respiratory: denies: shortness of breath Cardiovascular: denies: chest pain Gastrointestinal: denies: abdominal pain, nausea, vomiting Musculoskeletal: joint swelling, arthralgia Neurological: denies: numbness, paresthesias ED Past Medical Hx - Past Medical History Previous Medical History?: Yes Hx Congestive Heart Failure: No Hx Diabetes: No Hx Seizures: Yes Hx Asthma: No Hx COPD: No Hx HIV: No Additional medical history: multiple L shoulder dislocations - Surgical History Past Surgical History?: No - Social History Smoking Status: Current Every Day Smoker Substance Use Type: Alcohol - Medications Home Medications: Home Medications Medication Instructions Recorded Confirmed Last Taken Type Ibuprofen [Motrin] 600 mg PO Q8H PRN #20 tablet 10/05/19 Unknown Rx Phenytoin [Dilantin] 300 mg PO DAILY #90 capsule 02/06/20 Unknown Rx Naproxen [Naprosyn] 500 mg PO BID #20 tablet 04/13/20 Unknown Rx Phenytoin [Dilantin] 100 mg PO Q8HR #300 capsule.er 04/13/20 Unknown Rx traMADoL [Ultram] 50 mg PO Q6HR PRN #7 tablet 04/13/20 Unknown Rx HYDROcodone/APAP 5-325 [[place] 1 each PO Q6HR PRN #10 tablet 04/16/20 Unknown Rx 5/325] Upper Extremity Exam - Exam General: Vital signs noted. No distress. Alert and acting appropriately. Right shoulder: round, no squaring off, no deformity Head and Torso: No HEENT Abnormality, No Neck Tenderness, No Chest/Lungs Abnormality, No Abdominal Tenderness, No Back Tenderness Shoulder Exam: Yes Shoulder Tenderness, Yes Normal Range of Motion in Shoulder, No Clavicle Tenderness, No Shoulder Deformity, No AC Joint Tenderness Arm Exam: No Arm/Humerus Tenderness, No Arm Deformity Elbow: Yes Normal Range of Motion in Elbow, No Elbow Tenderness, No Elbow Deformity Forearm: No Forearm Tenderness, No Forearm Deformity, No Pain with Pronation, No Pain with Supination Wrist: Yes Normal ROM in Wrist, No Wrist Tenderness, No Wrist Deformity, No Snuffbox Tenderness, No Pain with Axial Thumb Compression Hand: Yes Normal ROM in Digit(s), No Hand Tenderness, No Hand Deformity, No Digit Tenderness, No Digit(s) Deformity, No Tendon Dysfunction CMS Exam: Yes Normal Distal Pulses, Yes Normal Capillary Refill, Yes Normal Distal Sensation, No Broken Skin ED Course Vital Signs 04/16/20 01:26 Temperature 98.1 F Pulse Rate 40 L Respiratory 12 Rate Blood Pressure 152/80 O2 Sat by Pulse 100 Oximetry ED Medical Decision Making - Radiology Data Radiology results: report reviewed RIGHT SHOULDER 2 VIEWS INDICATION / CLINICAL INFORMATION: right shoulder pain COMPARISON: None available. FINDINGS: BONES / JOINT(S): No acute fracture. Chronic Hill-Sachs deformity. Mild inferior subluxation of the humeral head likely due to joint effusion. SOFT TISSUES: No significant abnormality. ADDITIONAL FINDINGS: None. - Medical Decision Making Right shoulder injury: Subluxation seen on radiographs. I personally reviewed the radiographs finding. No indication of dislocation. I do agree with the findings of subluxation which corresponds to patient's physical exam. Considering history of multiple dislocations of the shoulder suspect rotator cuff injury. I strongly recommended evaluation by orthopedic surgeon. Prescription for [place] provided. Critical care attestation.: If time is entered above; I have spent that time in minutes in the direct care of this critically ill patient, excluding procedure time. ED Disposition Clinical Impression: Injury of right rotator cuff Disposition: -01 TO HOME OR SELFCARE Is pt being admited?: No Does the pt Need Aspirin: No Condition: Stable Instructions: Rotator Cuff Injury (ED) Prescriptions: HYDROcodone/APAP 5-325 [[place] 5/325] 1 each PO Q6HR PRN #10 tablet PRN Reason: Pain Referrals: RADHA LEE MD [Staff Physician] - 3-5 Days
[2020-04-16] MEDS ORDERED: HYDROcodone/ACETAMINOPHEN 5-325 MG TAB PO ONE (02:43)
[2020-04-16 03:54] VITALS: BP 139/82
== END 2020-04-16 03:55 | disposition home or self-care (01) ==
LOC: ED 00:25
DX: S46.091A Other injury of muscle(s) and tendon(s) of the rotator cuff of right shoulder, initial encounter (principal); F17.200 Nicotine dependence, unspecified, uncomplicated; Z79.899 Other long term (current) drug therapy; X58.XXXA Exposure to other specified factors, initial encounter; Y93.89 Activity, other specified; Y92.89 Other specified places as the place of occurrence of the external cause; Y99.8 Other external cause status